=== PATIENT | female | born 1990 | race African-American/Black ===

== ENCOUNTER 2020-07-16 09:57 | Emergency (ER) | payer SELFPAY | END 2020-07-16 10:05 | disposition left against medical advice (07) | LOC: ERS 09:57 | DX: Z53.21 Procedure and treatment not carried out due to patient leaving prior to being seen by health care provider (principal) ==

== ENCOUNTER 2020-10-06 15:24 | Emergency (ER) | payer SELFPAY ==
[2020-10-06] MEDS ORDERED: Lorazepam 2 MG/ML VIAL ONE (16:20)
[2020-10-06] MEDS ORDERED: Ketorolac Tromethamine 30 MG/ML VIAL ONE (16:20)
== END 2020-10-06 16:56 | disposition home or self-care (01) ==
LOC: ERS 15:24
DX: F41.9 Anxiety disorder, unspecified (principal); R09.1 Pleurisy
CPT/HCPCS: 71045; 93005; 96374; 96375; J1885; J2060